=== PATIENT | female | born 1980 | race Caucasian/White ===

== ENCOUNTER 2020-04-28 18:51 | Emergency (ER) | payer OTHER, SELFPAY ==
[2020-04-28 18:57] VITALS: BP 107/78; PULSE 83; RESP 16; TEMP 36.8; O2SAT 99; BMI 39.4
--- NOTE | 2020-04-28 19:06 | ED_ITS ---
HPI - Skin/Abscess/Foreign Bdy General: Chief complaint: Skin/Abscess/Foreign Body Stated complaint: poss insect bite on right leg Time Seen by Provider: 04/28/20 19:06 History of Present Illness: HPI narrative: Patient is a 40-year-old female comes to the ED with possible spider bite on right thigh. She noticed lesion initially last , April 23. It was a small red nodule at first. She says it is continued to get larger over the past couple days. The skin under the lesion is now firm and red and hot with some bruising as well. She rates the pain a 7 out of 10. She reports running a fever last night that got up to 102 degrees. She took Tylenol and ibuprofen to help with fever. Patient has a history of staph infection from a spider bite. Associated symptoms: Deny chills, fever(s), nausea or vomiting Review of Systems Const: Denies: fever(s), chills or fatigue Eyes: Denies: change in vision or eye discomfort ENMT: Denies: throat pain, odynophagia, nasal discharge or nasal congestion Card: Denies: chest pain, palpitations, edema, swelling of feet/ankles, dyspnea on exertion or orthopnea Resp: Denies: dyspnea, productive cough or non-productive cough GI: Denies: abdominal pain, nausea, vomiting, diarrhea, constipation or hematochezia : Denies: flank pain, dysuria or hematuria Musc: Denies: neck pain, back pain or extremity swelling Skin/Breast: Reports: new lesions (Possible spider bite on right thigh.); Denies: rash Neuro: Denies: headache(s), numbness in extremities or weakness in extremities Physical Exam Const: COMMON NORMALS: no acute distress, patient oriented x3, healthy appearing and alert GENERAL APPEARANCE: cooperative and comfortable HENMT: COMMON NORMALS: normocephalic HEAD & SCALP: normocephalic MOUTH: Normal oral and palatal mucosa present THROAT: posterior oropharynx normal and uvula midline Neck/C-Spine: COMMON NORMALS: supple GENERAL: Yes normal visual inspection Resp: COMMON NORMALS: normal respiratory effort, No retractions, No use of accessory muscles and clear to auscultation bilaterally AUSCULTATION: clear to auscultation bilaterally Cardio: COMMON NORMALS: regular rate, regular rhythm, S1 normal heart sound present, S2 normal heart sound present, No gallops present (Cardio), No clicks present (Cardio), No murmurs present (Cardio) and Peripheral pulses 2+ throughout RATE: regular rate RHYTHM: regular rhythm HEART SOUNDS: S1 normal heart sound present and S2 normal heart sound present PERIPHERAL PULSES: Peripheral pulses 2+ throughout GI: COMMON NORMALS: Normal to inspection, nondistended, normoactive bowel sounds present, Soft to palpation, non-tender and no masses PALPATION: Yes So ft to palpation : COMMON NORMALS: Yes no CVA tenderness BLADDER/KIDNEY EXAM: Yes no CVA tenderness Back/Pelvis: COMMON NORMALS: no CVA tenderness Extremity: NARRATIVE EXTREMITY EXAM: Right thigh?patient has a small less than half a centimeter superficial ulcer with surrounding erythema, warmth and ecchymosis seen. Tender upon palpation and it is nonfluctuant and indurated. No visible drainage. Findings suggestive of a potential spider bite with developing cellulitis. GENERAL: Yes normal exam except as noted Neuro: COMMON NORMALS: patient oriented x3 and moves all extremities SENSORIUM/ORIENTATION: Yes alert Skin: NARRATIVE SKIN EXAM: Right thigh?patient has a small less than half a centimeter superficial ulcer with surrounding erythema, warmth and ecchymosis seen. Tender upon palpation and it is nonfluctuant and indurated. No visible drainage. Findings suggestive of a potential spider bite with developing cellulitis. GENERAL SKIN EXAM: dry skin Course Vital Signs: Vital signs: Vital Signs Temperature 98.3 F 04/28/20 18:57 Pulse Rate 83 04/28/20 19:41 Respiratory Rate 16 04/28/20 18:57 Blood Pressure 107/78 04/28/20 18:57 Pulse Oximetry 99 04/28/20 19:41 MDM - Skin/Abscess/Foreign Bdy MDM Narrative: Medical decision making narrative: Patient is a 40-year-old female comes to the ED with spider bite on right upper thigh with surrounding erythema, ecchymosis, warmth and tenderness. Lesion nonfluctuant nonindurated. Exam findings suggestive of spider bite with some developing cellulitis. Patient has a history of staph skin infection. Patient was given dose of Bactrim while here in the ED and discharged with a prescription for Bactrim. She was told to follow-up with your PCP in the next 3 to 5 days to reevaluate lesion. Return to ED precautions given. Patient understood and agreed with plan. Discharge Plan Discharge Patient Disposition: Home Clinical Impression: Spider bite Qualifiers: Encounter type: initial encounter Injury intent: accidental or unintentional Qualified Code(s): T63.301A - Toxic effect of unspecified spider venom, accidental (unintentional), initial encounter Cellulitis Qualifiers: Site of cellulitis: extremity Site of cellulitis of extremity: upper extremity Laterality: right Qualified Code(s): L03.113 - Cellulitis of right upper limb Condition: Stable Prescriptions: New Bactrim DS 800-160 mg tablet 1 tab PO BID 7 Days Qty: 14 RF: 0 Discharge Orders: Discharge ED (Routine); Ordered 04/28/20 Ordered By: Baltazar Lynn Discharge Diet: Regular Discharge Activity: Resume usual activity Patient Instructions: Cellulitis (ED), [place] Spider Bite (ED), Opioid Safety Activity Restrictions/Additional Instructions: Follow-up with medical provider as directed in 3 to 5 days to reevaluate. Take medications as prescribed. Return to the ER or your medical provider if condition worsens. Please read and understand discharge instructions. If any questions, please ask. Coding Level of Care Code ED Trial Examiner for Mike Fwd Exam Comprehensive
[2020-04-28] MEDS: sulfamethoxazole-trimeth DS 160-800 mg Tablet 1 TAB PO (19:34)
[2020-04-28 19:41] VITALS: PULSE 83; O2SAT 99
== END 2020-04-28 19:41 | disposition home or self-care (01) ==
PROVIDERS: Emergency Provider Physician Assistant
DX: T63.301A Toxic effect of unspecified spider venom, accidental (unintentional), initial encounter (principal); L03.113 Cellulitis of right upper limb
CPT/HCPCS: 99283

== ENCOUNTER 2020-10-26 14:18 | Emergency (ER) | payer BC, SELFPAY ==
[2020-10-26 14:33] VITALS: BP 182/109; PULSE 77; RESP 18; TEMP 36.9; O2SAT 99; BMI 37.1
[2020-10-26 14:59] VITALS: BP 182/109; PULSE 77; TEMP 36.9; O2SAT 99
--- NOTE | 2020-10-26 15:14 | W.ED.ANXIETY ---
HPI - Anxiety General: Chief Complaint: Anxiety Stated Complaint: panic attacks Time Seen by Provider: 10/26/20 14:48 History of Present Illness: HPI narrative: Ms. Summers is a 40-year-old lady with significant past medical history of anxiety who presents emerged department due to increased anxiety and suicidal ideation. The patient endorses a longstanding history of anxiety which has been intermittently controlled. Over the past few months she has had increased social stressors and her symptoms have gradually been worsening. They have gotten severe to the point that she has near daily panic attacks which are fairly typical in nature. She does endorse having passive thoughts of suicide for the past day which she has never had before. She has never been hospitalized for psychiatric concerns. No history of suicide attempts or family suicide. She endorses productive factors such as her daughter going off to college. No other specific medical complaints, exacerbating, or relieving factors the patient identifies. She does take Lexapro and Xanax which she has been taking as prescribed but feels that the Lexapro is no longer working. Review of Systems General: Reports: 10 or more systems reviewed and unremarkable except in HPI and below Narrative: CONSTITUTIONAL: denies fever, fatigue, weakness EYES - denies pain, denies loss of vision EARS - denies ear issues. NOSE - denies congestion or rhinorrhea. THROAT - denies sore throat or difficulty swallowing. CARDIOVASCULAR - denies chest pain and palpitations RESPIRATORY - denies shortness of breath and cough GASTROINTESTINAL - denies abdominal pain, no nausea vomiting, no changes in bowel habits GENITOURINARY - denies dysuria or urinary frequency MUSCULOSKELETAL- denies deformity or pain SKIN - denies rashes. Skin lesion and induration on left posterior leg and supraumbilical, patient noted drainage but denies systemic signs of illness. NEUROLOGIC - denies focal weakness or sensory changes HEMATOLOGIC/LYMPHATIC - denies easy bruising or lymphadenopathy. [facility] Female Reproductive History: Date of last menstrual period: 10/25/20 Physical Exam Narrative: EXAM NARRATIVE: GENERAL/CONSTITUTIONAL - well-appearing. No acute distress. Eyes - PERRL, no conjunctival injection ENMT - Atraumatic external nose and ears. Moist mucous membranes NECK - supple. trachea midline CARDIOVASCULAR - regular rate and rhythm. Peripheral pulses 2+ and equal RESPIRATORY -clear to auscultation bilaterally. No retractions or accessory muscle use. ABDOMEN/GI - Nontender/Nondistended. No tenderness to percussion or evidence of peritonitis MSK - Extremities without obvious deformity or tenderness to palpation SKIN - Warm, Dry. Area of erythema and mild induration approximately 2 cm without palpable fluctuance in the supraumbilical region. No vesicles. NEURO - alert and appropriately oriented. strength and sensation intact. Moves all extremities equally. PSYCH -anxious, passive SI. Course ED course: - Patient was seen and evaluated by me at bedside - Patient placed on cardiac monitors, IV access obtained - Initial evaluation notable for somewhat anxious appearance, tearful. - Labs notable for no significant abnormality requiring intervention -Psychiatry service consulted and came to evaluate the patient. Medication changes at their recommendations - Upon serial reexamination after treatment the patient was improved. Patient happy with plan and plans to follow-up - Based on patient history, evaluation, labs, and imaging as interpreted the most likely cause of the patient's condition is psychiatric concerns including anxiety and passive suicidal ideation - The results of ED evaluation were discussed with the patient including prescriptions and/or symptomatic cares including appropriate and responsible use, followup plan, and return precautions. The patient verbalized understanding and felt safe for discharge. - Patient discharged in satisfactory condition. Vital Signs: Vital signs: Vital Signs Temperature 98.5 F 10/26/20 14:59 Pulse Rate 56 L 10/26/20 20:16 Respiratory Rate 18 10/26/20 14:33 Blood Pressure 139/88 10/26/20 20:16 Pulse Oximetry 98 10/26/20 20:16 MDM - Anxiety Medical Records: Attestation: I reviewed the patient's medical records. EKG Data^: EKG 1: Attestation: I personally reviewed and interpreted this EKG as follows: EKG interpretation date: 10/26/20 EKG interpretation time: 15:32 Prior EKG tracings: not available for review Ischemic changes: non-specific ST-T wave changes Interpretation: Twelve-lead EKG shows regular sinus rhythm at a rate of 66. GA interval 146, QRS duration 101, QTc 404. Normal axis. Nonspecific ST segment abnormalities Interpretation: Sinus rhythm. Nonspecific ST segment abnormalities. Lab Data: Attestation: I reviewed the patient's lab results. Labs: Lab Results 10/26/20 10/26/20 Range/Units 15:31 15:31 WBC 7.2 (4.0-10.0) 10^3/ uL RBC 4.63 (4.1-5.3) 10^6/u L Hgb 12.4 (11.5-15.3) g/dL Hct 38.7 (37.0-47.0) % MCV 83.6 (81-99) fl MCH 26.8 L (28.0-34.0) pg MCHC 32.0 (30.0-36.0) g/dL RDW 14.6 (12.1-15.1) % Plt Count 430 H (130-400) 10^3/c mm MPV 9.5 (7.4-10.4) fL Neut % (Auto) 68.9 % Lymph % (Auto) 23.0 % [place] % (Auto) 4.1 % Eos % (Auto) 3.1 % Baso % (Auto) 0.6 % Neut # (Auto) 4.94 (1.8-7.7) 10^3/u L Lymph # (Auto) 1.7 (0.8-4.8) 10^3/u L [place] # (Auto) 0.3 (0.2-0.9) 10^3/u L Eos # (Auto) 0.2 (0.0-0.8) 10^3/u L Baso # (Auto) 0.0 (0.0-0.1) 10^3/u L Nucleated RBC % (a uto) 0 % Nucleated RBCs # 0.0 /100WBC Sodium 138 (136-145) mmol/L Potassium 3.5 (3.5-5.1) mmol/L Chloride 100 (98-107) mmol/L Carbon Dioxide 26 (22-29) mmol/L Anion Gap 15.5 (5-19) BUN 7 (6-20) mg/dL Creatinine 0.6 (0.5-0.9) mg/dL GFR Calculation 111.9 (90-130) mL/min Glucose 115 (65-115) mg/dL Calculated Osmolal ity 285 (285-295) mOsm/k g Calcium 9.2 (8.5-10.5) mg/dL Total Bilirubin 0.3 (0.15-1.2) mg/dL AST 26 (0-32) U/L ALT 31 (0-33) U/L Alkaline Phosphata se 65 (35-105) IU/L Total Protein 7.0 (6.6-8.7) g/dL Albumin 4.5 (3.5-5.2) g/dL Globulin 2.5 (1.3-4.6) g/dL TSH 0.60 (0.27-4.20) uIU/ mL Salicylates < 0.3 L (3-10) mg/dL Acetaminophen < 5.0 L (10-30) ug/mL Discharge Plan Discharge Patient Disposition: Home Clinical Impression: Panic disorder, Psychiatric complaint Condition: Stable Prescriptions: New Lexapro 10 mg tablet 10 mg PO .qhs Qty: 30 RF: 0 buspirone 15 mg tablet 15 mg PO BID Qty: 60 RF: 0 clindamycin HCl 150 mg capsule 300 mg PO Q8H 5 Days Qty: 30 RF: 0 No Action alprazolam 0.5 mg tablet 0.5 mg PO DAILY PRN (Reason: Anxiety) RF: 0 ibuprofen 200 mg Tablet 800 mg PO PRN PRN (Reason: Pain) RF: 0 hydrochlorothiazide 25 mg tablet 25 mg PO QAM RF: 0 escitalopram oxalate 20 mg tablet 20 mg PO BEDTIME RF: 0 metoprolol tartrate 25 mg tablet 25 mg PO BID RF: 0 Glucosamine Chondroitin 550-30-1 mg Capsule 1 cap PO BID RF: 0 Vitamin B-12 1 tab PO QAM RF: 0 Discharge Orders: Discharge ED (Routine); Ordered 10/26/20 Ordered By: Brice Green Discharge Diet: Usual diet Discharge Activity: Resume usual activity Patient Instructions: Suicide Prevention for Adults (ED), Anxiety (ED) Activity Restrictions/Additional Instructions: Thank you for visiting the emergency department. You were seen and evaluated for psychiatric concerns. You were also evaluated by a psychiatrist who recommends increasing your Lexapro dose to a total of 30 mg at bedtime and also starting you on buspirone which will be 15 mg twice daily. Please follow-up with your primary care provider. Please return to the emergency department for any reason that you are concerned about and feel needs emergency department evaluation, thoughts of harming yourself or others, or any other concerns. Coding Level of Care Code ED Auto Body Repair Technician for Mike Felix
--- NOTE | 2020-10-26 15:15 | ECG_ITS ---
[facility] Test Date: 2020-10-26 Pat Name: Nivia Summers Department: Room: Gender: Female [employer]: : [id number] Requested By: Brice Green Order Number: [id number] Adonay MD: Nga Mcpherson M.D. Measurements Intervals [place] Rate: 66 P: 7 SC: 146 QRS: 32 QRSD: 101 T: 13 QT: 384 QTc: 404 Interpretive Statements SINUS RHYTHM Compared to ECG 04/01/2017 03:17:28 No significant changes Electronically Signed On 10-26-2020 23:59:14 CDT by Nga Mcpherson M.D. [id number]
[2020-10-26] MEDS: ibuprofen 600 mg Tablet PO (15:26)
[2020-10-26 15:43] LABS: Basophils % 0.6 %; Eosinophils # 0.2 10^3/uL (0.0-0.8); Eosinophils % 3.1 %; Hematocrit 38.7 % (37.0-47.0); Hemoglobin 12.4 g/dL (11.5-15.3); Lymphocytes # 1.7 10^3/uL (0.8-4.8); Mean Corpuscular Hemoglobin 26.8 pg (28.0-34.0); Mean Corpuscular Volume 83.6 fl (81-99); Mean Platelet Volume 9.5 fL (7.4-10.4); Monocytes # 0.3 10^3/uL (0.2-0.9); Monocytes % 4.1 %; Neutrophils # 4.94 10^3/uL (1.8-7.7); Neutrophils % 68.9 %; Nucleated Red Blood Cells % 0 %; Platelet Count 430 10^3/cmm (130-400); Red Blood Count 4.63 10^6/uL (4.1-5.3); Red Cell Distribution Width 14.6 % (12.1-15.1); White Blood Count 7.2 10^3/uL (4.0-10.0)
[2020-10-26 16:11] LABS: Alanine Aminotransferase 31 U/L (0-33); Albumin Level 4.5 g/dL (3.5-5.2); Alkaline Phosphatase 65 IU/L (35-105); Anion Gap 15.5 (5-19); Aspartate Amino Transferase 26 U/L (0-32); Blood Urea Nitrogen 7 mg/dL (6-20); Calcium 9.2 mg/dL (8.5-10.5); Carbon Dioxide 26 mmol/L (22-29); Chloride 100 mmol/L (98-107); Creatinine Clr Calc Pharmacy 155.1577; Globulin 2.5 g/dL (1.3-4.6); Glomerular Filtration Rate 111.9 mL/min (90-130); Glucose 115 mg/dL (65-115); Osmolality Calculated 285 mOsm/kg (285-295); Potassium 3.5 mmol/L (3.5-5.1); Sodium 138 mmol/L (136-145); Total Bilirubin 0.3 mg/dL (0.15-1.2)
[2020-10-26 16:12] LABS: Acetaminophen < 5.0 ug/mL (10-30); Salicylate < 0.3 mg/dL (3-10)
--- NOTE | 2020-10-26 16:45 | PC.NURSE ---
This nurse followed up with patient. Patient sitting up in bed. Patient states that she still feels anxious, but that her chest is not feeling as bad. Patient has no further needs at this time.
[2020-10-26 16:46] VITALS: BP 179/108; PULSE 63; O2SAT 100
[2020-10-26 20:16] VITALS: BP 139/88; PULSE 56; O2SAT 98
== END 2020-10-26 19:30 | disposition home or self-care (01) ==
PROVIDERS: Emergency Provider Emergency Medicine
DX: F41.0 Panic disorder [episodic paroxysmal anxiety] (principal)
CPT/HCPCS: 80053; 80307; 84443; 85025; 93005; 99283